=== PATIENT | female | born 1990 | race Caucasian/White ===

== ENCOUNTER 2016-11-23 19:58 | Emergency (ER) | payer OTHER ==
[~2016-11-23] VITALS: Ht 152.4 cm; Wt 63.6 kg
[2016-11-23 20:06] VITALS: BP 149/84; PULSE 86; RESP 15; O2SAT 97
--- NOTE | 2016-11-23 21:49 | ED.REPORT ---
HPI-Extremity Problem Lower Date of Service Nov 23, 2016 ED Provider: Dr. Woodall 26 y/o female with no pertinent hx presents to the ED complaining of left ankle pain that radiates up her left leg, onset 2 days ago. She also complains of bruising, tingling and numbness in her left foot. The pt was seen by her on- call doctor and was prescribed Cadott. Nursing Notes Stated Complaint: SPRAINED ANKLE, NUMB Chief Complaint: Extremity Trauma Nursing Notes Reviewed: Yes Allergies: Uncoded Allergies: PENICILLIN (Allergy, Severe, Anaphylaxis, 11/23/16) General Time Seen by MD: 21:49 Chief Complaint Ankle injury left Hx Obtained From: Patient Arrived By: Walk-in Onset Occurred: 2 days ago Symptom Duration: Since onset Location: : Ankle left Quality: Painful Severity: Current: Mild Severity: Maximum: Moderate Recent Healthcare: Recent doctor visit Similar Sx Previous: No Past Medical History Past Medical History none reported Past Surgical History none reported Smoking History Unknown if Ever Smoker Ambulatory Status Independent Review of Systems Reports: tingling sensation in the left ankle Musculoskeletal: Reports: Joint pain (left ankle) Skin: Reports Bruising (left ankle) Neurologic: Reports: Numbness (left ankle) Complete sys rev & neg: except as marked. Physical Exam Initial Vital Signs Vital Signs (First) Date Time Temp Pulse Resp B/P Pulse Ox O2 Delivery O2 Flow Rate FiO2 11/23/16 20:06 36.6 86 15 149/84 97 Room Air Head / Eyes: Atraumatic, Normocephalic Neck: Supple, Non-tender, Full range of motion Respiratory: Breath sounds normal, Clear to auscultation, No respiratory distress Cardiovascular: Regular rate & rhythm, Heart sounds normal, Intact distal pulses Upper Extremities: Vascular intact, Neuro intact, No swelling, No tenderness Skin: Warm, Dry, No cyanosis Neurologic: Alert, Oriented, Nonfocal Lower Extremity / Pelvis / MS: Full range of motion, No deformity, Neurologic intact, Vascular intact Calf pain and thigh pain with bounding pulses. Ankle / Foot: No deformity, Neurologic intact, Vascular intact Right Ankle: Positive: Ecchymosis present Left Foot: Positive: Ecchymosis present, Swelling present... (Moderate; laterally) General/Constitutional: Awake, Alert, Cooperative Interpretation & Diagnostics Exam: US DVT Conclusion: No evidence of left lower extremity deep venous thrombosis. Signed by Dr. Monie Tom 11/23/16 23:06 X-Ray Interpretation Xray Interpretation: Negative X-Ray Ordered: Ankle left Interpretation / Wet Read by: Wet read ED physician Re-Eval/Medical Decision Source of Hx: Old records Re-Evaluation/Progress : Time of Eval: 22:30 Re-Evaluation/Progress Note: Rechecked pt. Discussed imaging results, diagnosis and plan to discharge. Pt understands and agrees with the plan. F/U instructions and RTER warning given. All questions addressed. Counseled Regarding: Diagnosis, Need for follow-up, When/why to return to ED Discharge & Departure Impression: Primary Impression: Left ankle sprain Encounter type: initial encounter Involved ligament of ankle: unspecified ligament Qualified Code: S93.402A - Sprain of unspecified ligament of left ankle, initial encounter Disposition: Home Discharge Condition All VS Reviewed: Yes Condition: Stable Patient Instructions: Ankle Sprain (GEN) Additional Instructions: The imaging results was normal and reassuring. Use the boot and crutches as much as possible. Take 1-2 Cadott every 6 hours as needed for pain. Do not drive or drink alcohol or consume acetaminophen while taking the Cadott. Schedule an appointment with an Orthopedist for further evaluation in 7-10 days. If you develop any new or worsening pain come back to the emergency department. It was very nice meeting you. Referrals: ALONSO BURRELL MD (PCP) Fortunato Engibzay Attestation Portions of this note were transcribed by Rosa Morales. I,, personally performed the history, physical exam and medical decision-making;I reviewed and confirmed the accuracy of the information in the transcribed note. Signed by Ada Reynaga. 11/23/16 23:14 copies to: Fortunato Eng DO; ALONSO BURRELL MD, Todd P DO Nov 23, 2016 21:49 Rosa Morales Nov 23, 2016 22:38
--- NOTE | 2016-11-24 09:30 | DRSVH ---
PROCEDURE: US VEINOUS LEG DUPLEX UNILATERAL, LEFT INDICATIONS: left calf and thigh pain, recent ankle injury TECHNIQUE: Real-time imaging, as well as color and pulse Doppler interrogation, were performed of the lower extr emity deep veins from the inguinal ligament to the popliteal fossa. COMPARISON: None. FINDINGS: The deep veins are normally compressible, and free of intraluminal thrombus. Color and pu lse Doppler demonstrate normal phasic intraluminal flow. There is normal augmentation response to di stal compression maneuver. IMPRESSION: No DVT found. Note: These findings are concordant with the preliminary interpretation. Dictated by: Victor Hugo Holm M.D. on 11/24/2016 at 9:28 Approved by: Victor Hugo Holm M.D. on 11/24/2016 at 9:28
--- NOTE | 2016-11-24 09:30 | DRSVH ---
PROCEDURE: X-RAY LEFT ANKLE, MINIMUM THREE VIEWS ([id number]) INDICATIONS: worsening ankle pain after injury TECHNIQUE: 3 views of the ankle were acquired. COMPARISON: None. FINDINGS: Bones: No fractures or dislocations. Ankle mortise is normally aligned. No suspicious bony lesions . Soft tissues: No tibiotalar joint effusion. Achilles tendon appears normal. IMPRESSION: Mild swelling along the lateral malleolus, no fracture or traumatic subluxation seen. Dictated by: Victor Hugo Holm M.D. on 11/24/2016 at 9:27 Approved by: Victor Hugo Holm M.D. on 11/24/2016 at 9:28
== END 2016-11-23 23:08 | disposition home or self-care (01) ==
LOC: SED 19:58
DX: S93.492A Sprain of other ligament of left ankle, initial encounter (principal); X50.9XXA Other and unspecified overexertion or strenuous movements or postures, initial encounter; Y93.89 Activity, other specified; Y92.89 Other specified places as the place of occurrence of the external cause; Y99.8 Other external cause status